=== PATIENT | male | born 1990 | race Caucasian/White ===

== ENCOUNTER 2017-01-18 12:07 | Emergency (ER) | payer OTHER ==
[2017-01-18 12:27] VITALS: RESP 16
--- NOTE | 2017-01-18 13:45 | EDPHY ---
H & P Stated Complaint: cut r hand on car mirror HPI/ROS: CHIEF COMPLAINT: Hand laceration HISTORY OF PRESENT ILLNESS: Patient was attempting to close review here on the side of his car when the reflective surface shattered, causing an abrasion laceration to the palm of the right hand. This is over the hypo thenar and partially of the thenar eminence. It was moderately painful. This happened a 30 a.m.. He attempted irrigate the wound. He felt that the wound needed no care, but now presents as he was concerned of possibility of foreign body and needing higher level of care. It is minimally painful. There is no difficulty with flexion or extension of the fingers. No numbness or tingling. No injury proximal to the hand. No other associated complaints or modifying factors. TIME OF INJURY: 8:30 a.m. today TETANUS STATUS: Less than 4 years ago REVIEW OF SYSTEMS: Ten systems reviewed and are negative unless otherwise noted in the HPI EXAMINATION General Appearance: Alert, no distress Head: normocephalic, atraumatic Cardiovascular: Pulses normal throughout. Symmetric radial and DP pulses 2+. Brisk cap refill Neurological: A&O, sensory symmetric, strength symmetric. Normal 2 point sensation and good strength of the interossei the affected hand. Skin: Warm and dry, no rash. There is abrasion with laceration of the palm of the right hand involving the hypo thenar in thenar eminences. There is no repairable laceration. There is no obvious foreign body. Neurovascular intact distal to the injury. Extremities: Mild tenderness about the area of laceration abrasion. No bony tenderness of the hand. Full flexion, extension, abduction, abduction, opposition of the fingers and thumb. DIFFERENTIAL DIAGNOSES: Including but not limited to laceration, abrasion, laceration, foreign body, fracture, contusion, hematoma MDM: 1:30 p.m. Laceration with abrasion or maceration of the palm of the right hand. This was caused by review murmur of a car. I do not appreciate any obvious foreign body. There is no wound that may be suture repaired. I have anesthetize the wound for debridement. X-ray has been ordered to rule out foreign body. 1:45 p.m. Wounds have been anesthetized and cleaned. There is no foreign body by visualization. There is no foreign body on x-ray. No obvious fracture dislocation. The wounds will be dressed. He will be discharged home stable condition with wound care referral and daily wound care instructions. We discussed return to the emergency department precautions. He is comfortable with this plan and discharged home in stable condition. Procedure: Wound anesthesia Indication: Maceration/abrasion needing debridement Consent: Verbal Description: The area surrounding the wound was prepped with chlorhexidine. 1 % lidocaine without epinephrine, 10 mL as were infused without complication. There was good anesthesia of the wound. Tolerated well without complication. Neurovascular intact post procedure. ED Precautions: Worsening pain. Erythema, edema, cyanosis, pallor, paresthesia or anesthesia. SUPERVISION: This patient was independently evaluated without direct examination by the attending physician. Case was discussed with attending physician. Source: Patient Exam Limitations: No limitations - Personal History Current Tetanus/Diphtheria Vaccine: Yes - Medical/Surgical History Hx Asthma: No Hx Chronic Respiratory Disease: No Hx Diabetes: No Hx Cardiac Disease: No Hx Renal Disease: No Hx Cirrhosis: No Hx Alcoholism: No Hx HIV/AIDS: No Hx Splenectomy or Spleen Trauma: No Other PMH: none - Social History Smoking Status: Never smoked Constitutional: Initial Vital Signs Temperature (C) 98.1 F 01/18/17 12:25 Heart Rate 77 01/18/17 12:25 Respiratory Rate 16 01/18/17 12:25 Blood Pressure 145/73 H 01/18/17 12:25 O2 Sat (%) 96 01/18/17 12:25 O2 Delivery Mode Room Air Allergies/Adverse Reactions: No Known Allergies Allergy (Verified 01/18/17 12:24) Home Medications: Medication Instructions Recorded NK [No Known Home Meds] 01/18/17 Medical Decision Making - Diagnostics Imaging Results: Imaging Impressions Hand X-Ray 01/18/17 13:11 Impression: Normal. Departure - Departure Disposition: Home, Routine, Self-Care Clinical Impression: Abrasion, hand without infection Condition: Good Instructions: Abrasion (ED), Laceration Without Closure (ED) Additional Instructions: 1. Daily wound care as discussed 2. Follow up with wound care as needed 3. Return to the ER for any worsening pain, redness, fever, purulent Referrals: [facility] [Other] - As per Instructions [facility] [Clinic] - As per Instructions
[2017-01-18 14:09] VITALS: BP 111/58; PULSE 72; TEMP 98.6; O2SAT 94
== END 2017-01-18 14:00 | disposition home or self-care (01) ==
DX: S60.511A Abrasion of right hand, initial encounter (principal); W26.8XXA Contact with other sharp object(s), not elsewhere classified, initial encounter